=== PATIENT | female | born 1955 | race Caucasian/White ===

== ENCOUNTER 2016-07-18 08:54 | Outpatient (CLI) | payer BC ==
[~2016-07-18 08:54] MED LIST: ATIVAN0.5 MG PO; BUPROPION XL300 MG PO; CITRACAL + D E1 EACH PO; CRESTOR10 MG PO; GINGER500 MG PO; HCTZ25 MG PO; HYDROCODONE-APA1 TAB PO; LIBRAX CAPSULE1 CAP PO; PHENERGAN25 M1 PO; PROBIOTIC1 EAC1 PO; SOMA350 MG PO; VITAMIN D250000 UNIT PO; ZANTAC150 MG PO; ZOFRAN4 MG PO
== END 2016-07-18 09:39 ==
LOC: D.MAMMO 08:54
DX: Z12.31 Encounter for screening mammogram for malignant neoplasm of breast (principal)

== ENCOUNTER → 2016-08-20 15:56 | Outpatient (CLI) | payer BC | END | disposition home or self-care (01) | LOC: D.MAMMO 09:30 | DX: R92.8 Other abnormal and inconclusive findings on diagnostic imaging of breast (principal) ==

== ENCOUNTER → 2017-07-26 06:05 | Outpatient (CLI) | payer BC | END | disposition home or self-care (01) | LOC: D.MAMMO 06:05 | DX: Z12.31 Encounter for screening mammogram for malignant neoplasm of breast (principal) ==

== ENCOUNTER → 2018-06-23 12:16 | Outpatient (CLI) | payer BC | END | disposition home or self-care (01) | LOC: D.MRI 12:16 | PROVIDERS: ATTEND Orthopaedic Surgery | DX: M77.02 Medial epicondylitis, left elbow (principal) ==

== ENCOUNTER 2018-08-22 09:00 | Outpatient (CLI) | payer BC | END 2018-08-22 10:00 | disposition home or self-care (01) | LOC: D.MAMMO 09:00 | PROVIDERS: ATTEND Family Medicine | DX: Z12.31 Encounter for screening mammogram for malignant neoplasm of breast (principal) ==

== ENCOUNTER → 2019-09-18 09:09 | Outpatient (CLI) | payer BC ==
--- NOTE | 2019-09-21 13:47 | EC ---
PATIENT:JOHN PAUL SIMONS DATE OF SERVICE: 09/18/19 SEX: F MEDICAL RECORD: [id number] DATE OF : 53 [facility] AGE [facility] PAT[facility]: 63 ADMISSION DATE: 09/18/19 REFERRING PHYSICIAN: INTERPRETING PHYSICIAN: KARISHMA CARR MD ECHOCARDIOGRAM REPORT ECHO CHARGES 4 ECHO COMPLETE Date: 09/18/19 CLINICAL DIAGNOSIS: HEART MURMUR ECHOCARDIOGRAPHIC MEASUREMENTS (adult normal given) AC root (d.<3.7cm) 3.8 cm LV Septum d (<1.2 cm> 1.3 cm Valve Excursion 1.2 cm LV Septum (systole) 1.5 cm Left Atria (s.<4.0cm> 3.5 cm LVPW d(<1.2cm) 1.3 cm RV (d.<2.3cm) 3.1 cm LVPW (sytole) 1.5 cm LV diastole(<5.6CM) 4.3 cm MV E-F(>70mm/sec) cm LV systole 2.1 cm LVOT Diameter 1.8 cm MV exc.(>10mm) 1.2 cm Est.ejection fraction (50-75%) % DOPPLER: LVIT cm/sec A 74.0 cm/sec E 50.0 cm/sec LA cm/sec RVSP 26 mmHg LVOT 85 cm/sec AOP1/2T m/s Asc. Ao 108 cm/sec RVOT 69 cm/sec RA cm/sec PA 86 cm/sec AV Gradient Peak 4.51 mmHg AV Mean 2.73 mmHg AV Area 2.1 cm MV Gradient Peak 3.05 mmHg MV Mean 0.95 mmHg MV Area cm COMMENTS: Closing Manager: 2 ZACHARY [place] Belt Loop Cutter: 3 Dr. Dixon TAPE# PACS Pericardial Effusion N DATE OF SERVICE: 09/18/2019 Adequate 2D, color flow imaging, spectral Doppler, and M-Mode. Mild LVH. LV internal dimensions are normal. Wall motion normal. EF greater than or equal to 55%. Aortic valve is tricuspid. No evidence of stenosis by Doppler interrogation. Left atrium is normal at 3.5 cm. Mitral valve shows no prolapse. Trace MR. Right-sided chambers are grossly normal. Trace TR. TRANSINT:[id number] Voice Confirmation ID: [id number] DOCUMENT ID: [id number] ECHOCARDIOGRAM REPORT [id number] JOHN PAUL SIMONS GREGORY A MD at 1347 CC: [id number] DICTATION DATE: 09/18/19 1243 ROD BUSTER: 09/18/19 2153 DEP CLI 09/18/19 [place] [id number] [place] [id number]
== END | disposition home or self-care (01) ==
LOC: D.HCCECHO 09:09
PROVIDERS: ATTEND Internal Medicine Interventional Cardiology
DX: I20.9 Angina pectoris, unspecified (principal)

== ENCOUNTER → 2019-09-21 09:06 | Outpatient (CLI) | payer BC | END | disposition home or self-care (01) | LOC: D.HCCARDIO 09:06 | PROVIDERS: ATTEND Internal Medicine Cardiovascular Disease | DX: I20.9 Angina pectoris, unspecified (principal) ==

== ENCOUNTER 2019-10-14 11:30 | Outpatient (CLI) | payer BC | END 2019-10-14 12:30 | disposition home or self-care (01) | LOC: D.MAMMO 11:30 | PROVIDERS: ATTEND Family Medicine | DX: Z12.31 Encounter for screening mammogram for malignant neoplasm of breast (principal) ==